=== PATIENT | female | born 1980 | race Hispanic/Latino ===

== ENCOUNTER 2018-04-27 20:13 | Emergency (ER) | payer MEDICAID ==
[2018-04-27 20:20] VITALS: RESP 16; O2SAT 100
[2018-04-27] MEDS ORDERED: Sodium Chloride 0.9% 1,000 ML IV STA (20:33)
--- NOTE | 2018-04-27 20:36 | ED PDOC ---
HPI: Abdomen Time Seen by Provider: 04/27/18 20:23 Chief Complaint (Nursing): Abdominal Pain Chief Complaint (Provider): abdominal pain History Per: Patient History/Exam Limitations: no limitations Onset/Duration Of Symptoms: Hrs (>12) Current Symptoms Are (Timing): Still Present Location Of Pain/Discomfort: Epigastric, Periumbilical Associated Symptoms: Nausea, Vomiting Additional Complaint(s): 37 y/o female presents for evaluation of abdominal pain x 1 day. Patient states pain woke her up at 1:00 this morning, associated 4 episodes of vomiting since then. Denies fever, cough, congestion, chest pain, shortness of breath, palpitations, changes in bowel movements, urinary symptoms, recent travel, sick contacts. Past Medical History Reviewed: Historical Data, Nursing Documentation, Vital Signs Vital Signs: Last Vital Signs Temp 98.3 F 04/27/18 20:16 Pulse 78 04/27/18 20:16 Resp 16 04/27/18 20:16 BP 131/67 04/27/18 20:16 Pulse Ox 100 04/27/18 20:16 - Medical History PMH: No Chronic Diseases - Surgical History Surgical History: Appendectomy - Family History Family History: States: No Known Family Hx - Living Arrangements Living Arrangements: With Family - Home Medications Home Medications: Ambulatory Orders Medication Instructions Recorded Dicyclomine [Bentyl] 20 mg PO TID #21 tab 04/28/18 Ondansetron [Zofran] 4 mg PO Q8H PRN #10 tab 04/28/18 - Allergies Allergies/Adverse Reactions: Allergies Allergy/AdvReac Type Severity Reaction Status Date / Time No Known Allergies Allergy Verified 04/27/18 20:16 Review of Systems ROS Statement: Except As Marked, All Systems Reviewed And Found Negative Gastrointestinal: Positive for: Nausea, Vomiting, Abdominal Pain Physical Exam - Reviewed Nursing Documentation Reviewed: Yes Vital Signs Reviewed: Yes - Physical Exam Appears: Positive for: Well, Non-toxic, Uncomfortable Head Exam: Positive for: ATRAUMATIC, NORMAL INSPECTION, NORMOCEPHALIC Skin: Positive for: Normal Color Eye Exam: Positive for: Normal appearance ENT: Positive for: Normal ENT Inspection Cardiovascular/Chest: Positive for: Regular Rate, Rhythm Respiratory: Positive for: Normal Breath Sounds Gastrointestinal/Abdominal: Positive for: Bowel Sounds, Soft, Tenderness (epigastric, periumbilical) Back: Positive for: Normal Inspection Extremity: Positive for: Normal ROM Neurologic/Psych: Positive for: Alert, Oriented (x3) - Laboratory Results Result Diagrams: 04/27/18 21:30 04/27/18 21:30 - ECG O2 Sat by Pulse Oximetry: 100 - Progress ED Course And Treament: -cbc -cmp -lipase -urinalysis -IV NS bolus -IV toradol -IV zofran -IV pepcid On re-eval, patient still with nausea; IV reglan ordered On re-eval, patient states nausea improved but reports pain every time she tries to drink contrast; IV morphine ordered RUQ u/s [facility] impression: no acute findings CT abd/pelvis [facility] impression: thickening of the stomach and proximal small bowels, probably inflammatory pathology. No evidence of perforation or pneumatosis intestinalis. No evidence of ascites. Left ovarian ruptured follicle/cyst. Uncomplicated colonic diverticulosis On re-eval, patient states she is feeling better Patient educated on findings, discharged with rx Zofran, Bentyl. Advised fluids, bland diet Follow up GI Return precautions given Disposition - Clinical Impression Clinical Impression: Colitis, Abdominal pain, Left ovarian cyst - Patient ED Disposition Is Patient to be Admitted: No Counseled Patient/Family Regarding: Studies Performed, Diagnosis, Need For Followup, Rx Given - Disposition Referrals: Pako Villarreal MD [Staff Provider] - Disposition: Routine/Home Disposition Time: 03:42 Condition: IMPROVED Prescriptions: Dicyclomine [Bentyl] 20 mg PO TID #21 tab Ondansetron [Zofran] 4 mg PO Q8H PRN #10 tab PRN Reason: Nausea/Vomiting Instructions: Ovarian Cysts, Acute Abdomen (Belly Pain) Forms: [employer] ([place]ian)
[2018-04-27] MEDS ORDERED: Iohexol 240 (50 ml) PO ONE (20:45)
[2018-04-27] MEDS ORDERED: Iohexol 240 (50 ml) ONE (21:08)
[2018-04-27 21:39] LABS: BASO # 0.1 K/uL (0.0-0.2); BASO % 0.7 % (0.0-2.0); HEMOGLOBIN 15.4 g/dL (12.0-16.0); LYMPH # 0.9 K/uL (1.0-4.3); LYMPH % 8.5 % (20.0-40.0); MEAN CELL VOLUME 85.3 fl (81.0-99.0); MEAN CORPUSCULAR HEMOGLOBIN 28.8 pg (27.0-31.0); MEAN CORPUSCULAR HGB CONC 33.8 g/dL (33.0-37.0); MEAN PLATELET VOLUME 9.1 fl (7.2-11.7); MONO # 0.8 K/uL (0.0-0.8); MONO % 7.2 % (0.0-10.0); NEUT % 83.6 % (50.0-75.0); PLATELET COUNT 205 K/uL (130-400); RBC 5.34 Mil/uL (3.80-5.20); RED CELL DISTRIBUTION WIDTH 14.4 % (11.5-14.5); WHITE BLOOD COUNT 10.8 K/uL (4.8-10.8)
[2018-04-27 21:53] LABS: ALB/GLOB RATIO 1.3 (1.0-2.1); ALBUMIN 4.8 g/dL (3.5-5.0); ALT/SGPT 29 U/L (9-52); AST/SGOT 28 U/L (14-36); BLOOD UREA NITROGEN 11 mg/dl (7-17); CALCIUM 9.8 mg/dL (8.4-10.2); GFR NON-AFRICAN AMERICAN > 60; LIPASE 97 U/L (23-300); SQUAMOUS EPITHIAL 1 /hpf (0-5); URINE BILIRUBIN NEGATIVE (NEGATIVE); URINE BLOOD NEGATIVE (NEGATIVE); URINE CLARITY CLOUDY (Clear); URINE COLOR YELLOW (YELLOW); URINE GLUCOSE (UA) NEG (Normal); URINE LEUKOCYTE ESTERASE NEG Leu/uL (Negative); URINE PROTEIN 100 mg/dL (NEGATIVE); URINE UROBILINOGEN 0.2-1.0 mg/dL (0.2-1.0)
[2018-04-27 22:29] LABS: BANDS 2 % (0-2); LYMPHOCYTE 12 % (20-50); MONOCYTE 7 % (0-10); NEUTROPHIL 79 % (42-75); PLATELET ESTIMATE NORMAL (NORMAL); TOTAL CELLS COUNTED 100
[2018-04-27 22:30] LABS: HYPOCHROMIC SLIGHT
[2018-04-27] MEDS ORDERED: Sodium Chloride 0.9% 50 ML IV ONE (23:35)
[2018-04-27] MEDS ORDERED: Iohexol 300 100 ML IJ ONE (23:35)
[2018-04-28] MEDS ORDERED: Morphine 4 MG/ML VIAL IV ONE (00:13)
[2018-04-28] MEDS ORDERED: Morphine 4 MG/ML VIAL ONE (00:17)
[2018-04-28 05:56] VITALS: BP 128/64; PULSE 82; TEMP 98.5
--- NOTE | 2018-04-28 09:09 | CT ---
Date of service: 04/28/2018 PROCEDURE: CT Abdomen and Pelvis with contrast HISTORY: abd pain, vomiting COMPARISON: None. TECHNIQUE: Intravenous contrast dose: 90 cc Omnipaque 300. Radiation dose: Total exam DLP = 327.12 mGy-cm. This CT exam was performed using one or more of the following dose reduction techniques: Automated exposure control, adjustment of the mA and/or kV according to patient size, and/or use of iterative reconstruction technique. FINDINGS: LOWER THORAX: Unremarkable. LIVER: Unremarkable. No gross lesion or ductal dilatation. GALLBLADDER AND BILE DUCTS: Unremarkable. PANCREAS: Unremarkable. No gross lesion or ductal dilatation. SPLEEN: Unremarkable. ADRENALS: Unremarkable. No mass. KIDNEYS AND URETERS: Unremarkable. No hydronephrosis. No solid mass. VASCULATURE: Unremarkable. No aortic aneurysm. No atherosclerotic calcification or mural plaque present. BOWEL: Diverticulosis without an acute inflammatory component or other associated pathologic process. Dilatation of the wall of the stomach likely related to collapsed viscus. Proximal small-bowel dilatation suggests enteritis. APPENDIX: No abnormalities to suggest acute appendicitis. No right lower quadrant inflammatory processes identified. PERITONEUM: Unremarkable. No free fluid. No free air. LYMPH NODES: Unremarkable. No enlarged lymph nodes. BLADDER: Unremarkable. REPRODUCTIVE: Multiple cystic structures in the region of the adnexa particularly on the left including a deformed contrast-enhancing cyst likely ruptured left ovarian cyst. No appreciable free fluid in the pelvis. BONES: No acute fracture. OTHER FINDINGS: None. IMPRESSION: Enteritis, possible gastritis without mechanical obstructing lesion. Multiple adnexal cysts. Concordant results (preliminary interpretation) provided by [employer]. Procedure Completed: 01:38. Preliminary Report: Dictated and Authenticated: 03:18. Final Interpretation: 90 05:00.
--- NOTE | 2018-04-28 10:15 | US ---
Date of service: 04/28/2018 HISTORY: Vomiting and abdominal pain 24 hr duration COMPARISON: April 28, 2018 CT abdomen and pelvis TECHNIQUE: Sonographic evaluation of the right upper quadrant of the abdomen. FINDINGS: LIVER: Measures 12.9 cm in length. Patent portal vein. Portal venous flow: Hepatopetal. Unremarkable echogenicity of the liver parenchyma. No mass. No intrahepatic bile duct dilatation. GALLBLADDER: Unremarkable. No gallstones. COMMON BILE DUCT: Measures 4.4 mm. No stones. No dilatation. PANCREAS: Unremarkable as visualized. No mass. No ductal dilatation. RIGHT KIDNEY: Measures 5.1 x 9.8 cm in length. Normal echogenicity. No calculus, mass, or hydronephrosis. AORTA: No aneurysmal dilatation. IVC: Unremarkable. OTHER FINDINGS: None . IMPRESSION: No acute or significant findings related to/accounting for the clinical presentation. Concordant findings (preliminary report) provided by [facility].
== END 2018-04-28 03:10 | disposition home or self-care (01) ==
LOC: H.ER 20:13
DX: K52.9 Noninfective gastroenteritis and colitis, unspecified (principal); N83.202 Unspecified ovarian cyst, left side; R10.13 Epigastric pain
CPT/HCPCS: 74177; 76705; 80053; 81003; 81025; 83690; 85025; 96374; 99284; J1885; J2270; J2405; J2765; J7030; Q9966; Q9967